=== PATIENT | male | born 1960 | race Two or more races ===

== ENCOUNTER 2018-03-28 00:38 | Inpatient (IN) | payer OTHER ==
[2018-03-28] MEDS ORDERED: NS 1,000 ML IV ONE ×3 (00:41→03:17)
--- NOTE | 2018-03-28 00:44 | EDPHY ---
H & P Time Seen by Provider: 03/28/18 00:42 HPI/ROS: HPI CHIEF COMPLAINT: Unresponsiveness alcohol intoxication possible Tylenol overdose HISTORY OF PRESENT ILLNESS: 49-year-old male Lukas Duran, presents emergency room unresponsive, does not respond anything verbal or painful stimuli. Blood sugar reported normal by EMS. They were called to his private residence after he at some point called his neighbor for help that he was too intoxicated with alcohol. Also they were concerned that he may have taken a large amount of Tylenol. He presents emergency room GCS of 3. Agonal respirations unresponsive. Past Medical History: Unknown medical history Past Surgical History: Unknown surgical history Social History: Unknown Family History: Unknown ROS REVIEW OF SYSTEMS: Limited due to mental state and history from EMS. Unresponsive. Exam Constitutional unresponsive triage nursing summary reviewed, vital signs reviewed, Eyes normal conjunctivae and sclera, EOMI, PERRLA. HENT normal inspection, atraumatic, moist mucus membranes, no epistaxis, neck supple/ no meningismus, no raccoon eyes. Respiratory clear to auscultation bilaterally, normal breath sounds, no respiratory distress, no wheezing. Cardiovascular rate normal, regular rhythm, no murmur, no edema, distal pulses normal. Gastrointestinal soft, non-tender, no rebound, no guarding, normal bowel sounds, no distension, no pulsatile mass. Genitourinary no CVA tenderness. Musculoskeletal no midline vertebral tenderness, full range of motion, no calf swelling, no tenderness of extremities, no meningismus, good pulses, neurovascularly intact. Skin pink, warm, & dry, no rash, skin atraumatic. Neurologic unresponsive does not move anything. Heme/Lymph/Immune no lymphadenopathy. Differential Diagnosis: Includes but is not limited to in a particular order polysubstance overdose, alcohol intoxication, narcotic overdose, Tylenol overdose, salicylate overdose, intracranial bleed, mi Medical Decision Making: Plan for this patient upon arrival I did Greet the patient has been moved to ER room 1 for intubation given he is unresponsive. Patient's unresponsive requiring emergent intubation. Patient will have large amount of blood work sent CBC, chemistry, LFTs, seated medicine level salicylate level alcohol level drug screen, CT scan head without contrast, chest x-ray for intubation, ABG Re-evaluation: Serum alcohol level 495. See medicine level elevated 31. CT scan head without contrast negative for acute bleed. Called to me by EKG interpretation by me on record in [employer] system. Impression sinus rhythm rate of 78, time of EKG 1:43 a.m., this is an early Repol pattern. No acute ischemia appreciated. Acetaminophen count of the patient is Tylenol, there 72 missing, out of 250 pills. Given that there 725 mg Tylenol as missing I will contact poison Control. The time of ingestion is unknown. The patient's alcohol level is 495. He is currently intubated with hemodynamically stable vital signs. Critical Care: Total Critical Care Time Spent Managing this Patient: 85 Minutes. This time was spent Exclusively with this patient. This Care was exclusive of procedures. The Organ System/life at risk was resp failure, drug overdose, polysubstance od This Patient was in Critical Condition because resp. failure, drug overdose, tylenol od, polysubstance abuse 0227: Patient has received of the Tylenol bother that he bought [email or web address]. The Tylenol bottle was bought at 10:30 p.m.. This is possibly the time of ingestion. 75 pills 500 mg or missing out of the 250. Will plan for 4 hr level at 2:30 a.m. At recommendation of poison Control. If above 150 may need to start NAC protocol. Additionally spoke with the hospitalist service Dr. Khoury who agrees to admit to ICU. Final diagnosis respiratory failure. Acute alcohol intoxication, alcohol overdose, Tylenol ingestion, polysubstance overdose, possible suicide attempt. Patient has been placed on M1 hold by police. Spoke with poison Control 3:00 a.m.. Recommend NAC protocol. Time of ingestion is not exactly accurate. Due to the patient's elevated Tylenol level close to 115 elevated LFTs with unknown baseline plan will be to start on NAC protocol. Patient started on the NAC protocol. Intubation Procedure: Indication respiratory failure. Patient was placed on a non-rebreather with high-flow nasal cannula. The patient was preoxygenated. Patient placed on full quality assurance monitor body. Patient was emergently intubated with RSI medications. 20 mg IV etomidate were used. 120 mg IV succinylcholine. A mac 4 blade was used to visualize the cords. Direct visualization of the cords were obtain. A 7.5 endotracheal tube was passed directly through the cords. Endotracheal tube intubation was confirmed with chest x-ray, capnography for change, humidified air, and bilateral breath sounds. There were no complications during intubation. Patient tolerated this well. Total procedure time 20 min. Source: Patient, EMS Constitutional: Initial Vital Signs Temperature (C) 36.4 C 03/28/18 00:40 Heart Rate 92 03/28/18 00:40 Respiratory Rate 10 L 03/28/18 00:40 Blood Pressure 106/73 03/28/18 00:40 O2 Sat (%) 100 03/28/18 00:40 O2 Delivery Mode Ventilator O2 (L/minute) 15 Allergies/Adverse Reactions: No Known Allergies Allergy (Verified 03/28/18 17:17) Home Medications: Medication Instructions Recorded Cholecalciferol Vit D3 [Vitamin D3 2,000 units PO DAILY 03/28/18 (*)] Herbals/Supplements -Info Only 1 ea PO DAILY 03/28/18 Multivitamins [Multivitamin (*)] 1 each PO DAILY 03/28/18 Medical Decision Making - Data Points Laboratory Results: Laboratory Results 03/28/18 00:45 03/28/18 00:45 Medications Given: Enoxaparin Sodium (Lovenox) 40 mg SC DAILY CABRERA Stop: 09/24/18 08:59 Last Admin: 03/29/18 08:01 Dose: 40 mg Folic Acid (Folic Acid) 1 mg PO DAILY CABRERA Stop: 09/24/18 08:59 Last Admin: 03/29/18 08:00 Dose: 1 mg Acetylcysteine 8,600 mg/ (Dextrose) 1,043 mls @ 65.188 mls/hr IV CONT CABRERA Stop: 09/25/18 01:14 Last Admin: 03/29/18 01:20 Dose: 1,043 mls Magnesium Oxide (Magnesium Oxide) 400 mg PO BID CABRERA Stop: 09/25/18 20:59 Last Admin: 03/29/18 21:07 Dose: 400 mg Throat Lozenges (Cepacol Lozenge) 1 ea PO PRN PRN PRN Reason: Sore Throat Stop: 09/25/18 08:51 Last Admin: 03/29/18 10:30 Dose: 1 ea Discontinued Medications Chlordiazepoxide HCl (Librium) 50 mg PO ONCE ONE Stop: 03/29/18 10:24 Last Admin: 03/29/18 11:14 Dose: 50 mg Chlorhexidine Gluconate (Peridex) 15 ml PO Q12@08,20 CABRERA Stop: 09/24/18 07:59 Last Admin: 03/28/18 10:44 Dose: 15 ml Etomidate (Etomidate) 40 mg IVP EDNOW ONE Stop: 03/28/18 01:17 Last Admin: 03/28/18 00:49 Dose: 40 mg Sodium Chloride (Ns) 1,000 mls @ 0 mls/hr IV EDNOW ONE; Wide Open PRN Reason: Protocol Stop: 03/28/18 00:42 Last Admin: 03/28/18 01:12 Dose: 1,000 mls Sodium Chloride (Ns) 1,000 mls @ 0 mls/hr IV ONCE ONE PRN Reason: Wide Open Stop: 03/28/18 00:53 Last Admin: 03/28/18 02:07 Dose: 1,000 mls Propofol (Diprivan 10 Mg/Ml (Premix)) 50 mls @ 0 mls/hr IV EDNOW ONE; As Directed PRN Reason: Protocol Stop: 03/28/18 00:54 Last Admin: 03/28/18 01:04 Dose: 50 mls Famotidine/Sodium Chloride (Pepcid 20 Mg (Premix)) 50 mls @ 200 mls/hr IV Q12HRS CABRERA Stop: 09/24/18 08:59 Last Admin: 03/29/18 08:03 Dose: 50 mls Fentanyl/Sodium Chloride (Fentanyl 10 Mcg/Ml (Premix)) 100 mls @ 0 mls/hr IV CONT CABRERA; Per Protocol PRN Reason: Protocol Stop: 04/07/18 02:29 Last Admin: 03/28/18 03:11 Dose: 100 mls Acetylcysteine 4,300 mg/ (Dextrose) 521.5 mls @ 130.375 mls/hr IV ONCE ONE Stop: 03/28/18 08:29 Last Admin: 03/28/18 04:55 Dose: 521.5 mls Acetylcysteine 8,600 mg/ (Dextrose) 1,043 mls @ 65.188 mls/hr IV ONCE ONE Stop: 03/29/18 00:29 Last Admin: 03/28/18 09:10 Dose: 1,043 mls Acetylcysteine 12,900 mg/ (Dextrose) 264.5 mls @ 264.5 mls/hr IV ONCE ONE Stop: 03/28/18 04:29 Last Admin: 03/28/18 03:30 Dose: 264.5 mls Sodium Chloride (Ns) 1,000 mls @ 0 mls/hr IV ONCE ONE PRN Reason: Wide Open Stop: 03/28/18 03:18 Last Admin: 03/28/18 03:19 Dose: 1,000 mls Thiamine HCl 500 mg/ Sodium (Chloride) 105 mls @ 210 mls/hr IV DAILY CABRERA Stop: 04/01/18 08:59 Last Admin: 03/29/18 08:03 Dose: 105 mls Magnesium Sulfate (Magnesium Sulf 2 Gm (Premix)) 50 mls @ 50 mls/hr IV ONCE ONE Stop: 03/29/18 17:43 Last Admin: 03/29/18 16:59 Dose: 50 mls Potassium Chloride (Potassium Cl 10 Meq (Premix)) 100 mls @ 100 mls/hr IV Q1H CABRERA Stop: 03/29/18 20:59 Last Admin: 03/29/18 20:15 Dose: 100 mls Lorazepam (Ativan Injection) 0 mg IVP Q1H PRN; Protocol PRN Reason: Alcohol Withdrawal w/IV access Stop: 09/25/18 06:31 Last Admin: 03/29/18 07:53 Dose: 2 mg Potassium Chloride (Klor-Con) 40 meq PO ONCE ONE Stop: 03/29/18 16:44 Last Admin: 03/29/18 16:59 Dose: 40 meq Propofol (Diprivan) 40 mg IVP EDNOW ONE Stop: 03/28/18 01:17 Last Admin: 03/28/18 00:55 Dose: 40 mg Succinylcholine Chloride (Quelicin) 120 mg IVP EDNOW ONE Stop: 03/28/18 01:17 Last Admin: 03/28/18 00:50 Dose: 120 mg Point of Care Test Results: Chemistry 03/28/18 01:39 POC Troponin I 0.01 ng/mL ng/mL (0.00-0.08) Blood Gas/Lactic Acid-Arterial 03/28/18 01:15 Tidal Volume 550 Departure - [facility] Clinical Impression: Respiratory failure Qualifiers: Chronicity: acute Respiratory failure complication: hypoxia Qualified Code(s): J96.01 - Acute respiratory failure with hypoxia Alcohol overdose Qualifiers: Encounter type: initial encounter Injury intent: intentional self-harm Qualified Code(s): T51.92XA - Toxic effect of unspecified alcohol, intentional self-harm, initial encounter Acetaminophen overdose Qualifiers: Encounter type: initial encounter Injury intent: intentional self-harm Qualified Code(s): T39.1X2A - Poisoning by 4-Aminophenol derivatives, intentional self-harm, initial encounter Condition: Critical
[2018-03-28] MEDS ORDERED: PROPOFOL/EMULSION 50 ML IV ONE (00:53)
[2018-03-28 00:55] LABS: PLATELET COUNT 162 10^3/uL (150-400)
[2018-03-28] MEDS ORDERED: PROPOFOL 200 MG/20 ML VIAL ONE (00:58)
[2018-03-28 01:03] LABS: INR 0.97 (0.83-1.16); PROTIME(PATIENT) 13.1 SEC (12.0-15.0)
[2018-03-28] MEDS ORDERED: SUCCINYLCHOLINE CHLORIDE 200 MG/10 ML SYR IVP ONE (01:16)
[2018-03-28] MEDS ORDERED: PROPOFOL 200 MG/20 ML VIAL IVP ONE (01:16)
[2018-03-28] MEDS ORDERED: ETOMIDATE 40 MG/20 ML INJ IVP ONE (01:16)
[2018-03-28] MEDS ORDERED: fentaNYL/NACL 100 ML IV SCH (02:30)
[2018-03-28] MEDS ORDERED: PROPOFOL/EMULSION 100 ML IV SCH (02:30)
--- NOTE | 2018-03-28 03:03 | PDGENHP ---
History and Physical - Chief Complaint Ingestion - History of Present Illness 57 yo M w/ unknown PMHx brought to ED by EMS after reports of ingestion. The patient is intubated and sedated at the time of my evaluation so history has been gleaned from medical records and police notes. EMS was called to patient's house after the patient called his neighbor and told him he was too intoxicated. EMS arrived and found the patient somnolent with a bottle of Tylenol at his side. 72 pills are missing from the bottle, 500 mg dose per pill. Police was able to speak to his sister. She said the patient told her he drank a lot of alcohol and took 1/3 or a Tylenol bottle. She noted he sounded depressed. She told police she did not know of the patient having any prior suicide attempts. Case discussed with ED physician Dr. Chao; records reviewed in EMR and summarized above. History Information - Allergies/Home Medication List Allergies/Adverse Reactions: Unable to Assess Allergy (Unverified 03/28/18 02:22) I have personally reviewed and updated: family history, medical history - Past Medical History Additional medical history: Unable to obtain 2/2 AMS - Surgical History Additional surgical history: Unable to obtain 2/2 AMS - Family History Additional family history: Unable to obtain 2/2 AMS - Social History Smoking Status: Unknown if ever smoked Review of Systems Review of Systems: Unable to obtain 2/2 AMS Physical Exam Physical Exam: Temp Pulse Resp BP Pulse Ox 36.1 C 73 14 94/58 L 99 03/28/18 02:52 03/28/18 02:52 03/28/18 02:52 03/28/18 02:52 03/28/18 02:52 Constitutional: other (Intubated, sedated) Eyes: PERRL, anicteric sclera, other (Pinpoint pupils) Ears, Nose, Mouth, Throat: moist mucous membranes, no oral mucosal ulcers Cardiovascular: regular rate and rhythym, no murmur, rub, or gallop Respiratory: other (Mechanical breath sounds), No expiratory wheeze Gastrointestinal: normoactive bowel sounds, soft, non-tender abdomen Skin: warm, normal color Neurologic: other (Intubated, sedated) Lab Data & Imaging Review 03/28/18 00:45 03/28/18 00:45 WBC 5.15 10^3/uL (3.80-9.50) 03/28/18 00:45 RBC 4.73 10^6/uL (4.40-6.38) 03/28/18 00:45 Hgb 15.4 g/dL (13.7-17.5) 03/28/18 00:45 Hct 44.3 % (40.0-51.0) 03/28/18 00:45 MCV 93.7 fL (81.5-99.8) 03/28/18 00:45 MCH 32.6 pg (27.9-34.1) 03/28/18 00:45 MCHC 34.8 g/dL (32.4-36.7) 03/28/18 00:45 RDW 11.9 % (11.5-15.2) 03/28/18 00:45 Plt Count 162 10^3/uL (150-400) 03/28/18 00:45 MPV 10.6 fL (8.7-11.7) 03/28/18 00:45 Neut % (Auto) 44.9 % (39.3-74.2) 03/28/18 00:45 Lymph % (Auto) 32.4 % (15.0-45.0) 03/28/18 00:45 [place] % (Auto) 15.9 % (4.5-13.0) H 03/28/18 00:45 Eos % (Auto) 4.7 % (0.6-7.6) 03/28/18 00:45 Baso % (Auto) 1.9 % (0.3-1.7) H 03/28/18 00:45 Nucleat RBC Rel Count 0.0 % (0.0-0.2) 03/28/18 00:45 Absolute Neuts (auto) 2.31 10^3/uL (1.70-6.50) 03/28/18 00:45 Absolute Lymphs (auto) 1.67 10^3/uL (1.00-3.00) 03/28/18 00:45 Absolute Monos (auto) 0.82 10^3/uL (0.30-0.80) H 03/28/18 00:45 Absolute Eos (auto) 0.24 10^3/uL (0.03-0.40) 03/28/18 00:45 Absolute Basos (auto) 0.10 10^3/uL (0.02-0.10) 03/28/18 00:45 Absolute Nucleated RBC 0.00 10^3/uL (0-0.01) 03/28/18 00:45 Immature Gran % 0.2 % (0.0-1.1) 03/28/18 00:45 Immature Gran # 0.01 10^3/uL (0.00-0.10) 03/28/18 00:45 PT 13.1 SEC (12.0-15.0) 03/28/18 00:45 INR 0.97 (0.83-1.16) 03/28/18 00:45 APTT 26.2 SEC (23.0-38.0) 03/28/18 00:45 Puncture Site LEFT RADIAL 03/28/18 01:15 Patient Temperature 37.0 DEGREES 03/28/18 01:15 pCO2 36 mmHg (34-38) 03/28/18 01:15 pO2 152 mmHg (65-75) H 03/28/18 01:15 Total CO2 20 mEq/L (23-27) L 03/28/18 01:15 ABG pH 7.35 (7.35-7.45) 03/28/18 01:15 ABG PO2/FiO2 Ratio 380 RATIO 03/28/18 01:15 ABG HCO3 19 mEq/L (22-26) L 03/28/18 01:15 ABG O2 Saturation 99 % (92-95) H 03/28/18 01:15 ABG Base Excess -5.3 mEq/L (-2.5-2.5) L 03/28/18 01:15 O2 Concentration % 40 % (0-100) 03/28/18 01:15 Respiration Rate 16 03/28/18 01:15 Set Respiration Rate 16 03/28/18 01:15 Assist Control YES 03/28/18 01:15 Tidal Volume 550 03/28/18 01:15 PEEP 5 03/28/18 01:15 Sodium 143 mEq/L (135-145) 03/28/18 00:45 Potassium 4.4 mEq/L (3.3-5.0) 03/28/18 00:45 Chloride 107 mEq/L (97-110) 03/28/18 00:45 Carbon Dioxide 20 mEq/l (22-31) L 03/28/18 00:45 Anion Gap 16 mEq/L (6-14) H 03/28/18 00:45 BUN 18 mg/dL (7-23) 03/28/18 00:45 Creatinine 0.9 mg/dL (0.7-1.3) 11 00:45 Estimated GFR > 60 03/28/18 00:45 Glucose 100 mg/dL (70-100) 03/28/18 00:45 Calcium 9.6 mg/dL (8.5-10.4) 03/28/18 00:45 Magnesium 2.1 mg/dL (1.6-2.3) 03/28/18 00:45 Total Bilirubin 0.8 mg/dL (0.1-1.4) 03/28/18 00:45 Conjugated Bilirubin 0.2 mg/dL (0.0-0.5) 03/28/18 00:45 Unconjugated Bilirubin 0.6 mg/dL (0.0-1.1) 03/28/18 00:45 AST 93 IU/L (17-59) H 03/28/18 00:45 ALT 116 IU/L (21-72) H 03/28/18 00:45 Alkaline Phosphatase 70 IU/L (38-126) 03/28/18 00:45 POC Troponin I 0.01 ng/mL (0.00-0.08) 03/28/18 01:39 NT-Pro-B Natriuret Pep 35 pg/mL (0-125) 03/28/18 00:45 Total Protein 7.6 g/dL (6.3-8.2) 03/28/18 00:45 Albumin 4.5 g/dL (3.5-5.0) 03/28/18 00:45 Lipase 331 IU/L (23-300) H 03/28/18 00:45 Salicylates < 1.0 mg/dL (2.0-20.0) L 03/28/18 00:45 Urine Opiates Screen NEGATIVE (NEGATIVE) 03/28/18 01:45 Acetaminophen 111 mcg/mL (10-30) H* 03/28/18 02:25 Urine Barbiturates NEGATIVE (NEGATIVE) 03/28/18 01:45 Ur Phencyclidine Scrn NEGATIVE (NEGATIVE) 03/28/18 01:45 Ur Amphetamine Screen NEGATIVE (NEGATIVE) 03/28/18 01:45 U Benzodiazepines Scrn NEGATIVE (NEGATIVE) 03/28/18 01:45 Urine Cocaine Screen NEGATIVE (NEGATIVE) 03/28/18 01:45 U Marijuana (THC) Screen NEGATIVE (NEGATIVE) 03/28/18 01:45 Ethyl Alcohol 495 mg/dL (0-10) H* 03/28/18 00:45 Assessment & Plan Assessment: 57 yo M presents somnolent requiring intubation after ETOH and APAP overdose. Plan: 1. Toxic ingestion, APAP and ETOH - Suspected suicide attempt. Tylenol ingestion of >30 grams and BAL 495 on admission. Agonal respirations were noted on arrival to ED so patient was intubated for airway protection. AST/ALT 93/116 on admission. APAP level 31->111 over 2.5 hours without clear time of ingestion. - Admit to ICU on M1 hold - Poison control contacted - initiate NAC protocol - Monitor CMP, INR, APAP lvl q12h 2. AHRF - Intubated for airway protection noting above - ICU vent management orders placed - Sedation protocol initiated - Daily CXR, ABG PRN 3. AGMA - Likely multifactorial form acetaminophen, ETOH, and lactic acidosis. - Monitor CMP, ABG 4. Major depression with suicidality - Unclear history, will place on M1 hold and have Psychiatry evaluate after medical clearance. Diet - NPO Code - Full Ppx - LMWH, H2B IV Dispo - Admit under inpatient stats I personally spent 40 minutes of critical care time evaluation patient, interpreting data, and coordinating care.
[2018-03-28] MEDS ORDERED: ACETYLCYSTEINE IV PROTOCOL 1 EACH MISC SCH ×2 (03:15)
[2018-03-28] MEDS ORDERED: D5W IV ONE ×3 (03:30→08:30)
[2018-03-28] MEDS ORDERED: ACETYLCYSTEINE IV ONE ×3 (03:30→08:30)
[2018-03-28 06:00] LABS: INR 1.17 (0.83-1.16); PROTIME(PATIENT) 15.1 SEC (12.0-15.0)
--- NOTE | 2018-03-28 06:06 | CPEKG ---
Test Reason : OPEN Blood Pressure : / mmHG Vent. Rate : 078 BPM Atrial Rate : 079 BPM P-R Int : 167 ms QRS Dur : 095 ms QT Int : 389 ms P-R-T Axes : -40 088 055 degrees QTc Int : [address] elev, probable normal early repol pattern Confirmed by Miguel Angel Aguilar ([id number]) on 03/28/2018 6:05:33 AM Also confirmed by Miguel Angel Aguilar ([id number]) on 03/28/2018 6:06:00 AM Referred By: Confirmed By:Miguel Angel Aguilar
[2018-03-28] MEDS ORDERED: CHLORHEXIDINE GLUCONATE 15 ML UDL PO SCH (08:00)
--- NOTE | 2018-03-28 09:40 | PDMN ---
Medical Necessity Medical necessity: Pt meets inpt criteria per MD order and MCG M-153, Drug Ingestion or Overdose. 57 y/o admitted w/toxic ingestion and acute hypoxic resp failure/somnolent in setting of ETOH and APAP overdose requiring intubation, suspected suicide attempt, on M1 Hold. Acetominophen lv 111, ethyl alcohol lv 495, AST/ALT 93/116. ICU monitoring/treatment w/vent management, follow labs, psych consult pending. Est LOS>2MN for management of above.
--- NOTE | 2018-03-28 09:49 | HOSPPROG ---
Hospitalist Progress Note Assessment/Plan: 57 yo M presents somnolent requiring intubation after ETOH and APAP overdose. Plan: 1. Toxic ingestion, APAP and ETOH - Suspected suicide attempt. Tylenol ingestion of >30 grams and BAL 495 on admission. Agonal respirations were noted on arrival to ED so patient was intubated for airway protection. AST/ALT 93/116 on admission. APAP level 31->111 over 2.5 hours without clear time of ingestion. - Admitted to ICU on M1 hold - Poison control contacted - Continue NAC protocol - Monitor CMP, INR, APAP lvl q12h per protocol 2. AHRF - Intubated for airway protection noting above - ICU vent management orders placed - Sedation protocol initiated - Daily CXR, ABG PRN 3. AGMA - Likely multifactorial form acetaminophen, ETOH, and lactic acidosis. - Monitor CMP, ABG 4. Major depression with suicidality - Unclear history, will place on M1 hold and have Psychiatry evaluate after medical clearance. Diet - NPO Code - Full Ppx - LMWH, H2B IV Dispo - Admit under inpatient stats I personally spent 35 minutes of critical care time evaluation patient, interpreting data, and coordinating care. Subjective: Patient intubated Objective: Vital Signs Temp Pulse Resp BP Pulse Ox 36.8 C 71 21 H 103/51 L 98 03/28/18 09:00 03/28/18 09:00 03/28/18 09:00 03/28/18 09:00 03/28/18 09:00 Laboratory Results 03/28/18 05:35 03/27/18 03/28/18 03/29/18 05:59 05:59 05:59 Intake Total 2717.8 Output Total 1000 Balance 1717.8 PT 15.1 SEC (12.0-15.0) H 03/28/18 05:35 INR 1.17 (0.83-1.16) H 03/28/18 05:35 - Physical Exam Constitutional: no apparent distress, chronically ill appearing Eyes: anicteric sclera Ears, Nose, Mouth, Throat: other (intubated) Cardiovascular: regular rate and rhythym Respiratory: no respiratory distress Gastrointestinal: soft, non-tender abdomen Genitourinary: ornelas in urethra Skin: warm Neurologic: No AAOx3 Psychiatric: No interacting appropriately ICD10 Worksheet Patient Problems: Problems Problem Status Onset Acetaminophen overdose Acute Alcohol overdose Acute Respiratory failure Acute
--- NOTE | 2018-03-28 09:58 | PDGENHP ---
History and Physical - Chief Complaint Altered mental status - History of Present Illness 57-year-old male new to a [facility] brought in by ambulance after intentional acetaminophen ingestion acute alcohol intoxication concern for suicide attempt. Patient was intubated in the emergency department for airway protection. His neighbor/sister approximates he took 72 pills of 500 mg Tylenol. Per report he has had no prior suicide attempts. Patient was attended at time of history and physical is unable to provide any meaningful information. I looked through [email or web address] as well as [facility] and we have no significant prior records on file. Overnight patient remained intubated and minimally sedated. He has had adequate urine output. History Information - Allergies/Home Medication List Allergies/Adverse Reactions: Unable to Assess Allergy (Unverified 03/28/18 02:22) I have personally reviewed and updated: family history, medical history, social history, surgical history - Past Medical History Additional medical history: Unable to obtain 2/2 AMS - Surgical History Additional surgical history: Unable to obtain 2/2 AMS - Family History Additional family history: Unable to obtain 2/2 AMS - Social History Smoking Status: Unknown if ever smoked Additional social history: Unable to be obtained secondary to patient's mental status and critical illness Review of Systems Review of Systems: Unable to be obtained secondary to patient's mental status and critical illness Physical Exam Physical Exam: Temp Pulse Resp BP Pulse Ox 36.8 C 71 21 H 103/51 L 98 03/28/18 09:00 03/28/18 09:00 03/28/18 09:00 03/28/18 09:00 03/28/18 09:00 O2 (L/minute) 100 FIO2 (%) 30 Constitutional: no apparent distress Eyes: PERRL, No icteric sclera Ears, Nose, Mouth, Throat: moist mucous membranes, ears appear normal, other ( The T-tube in place), No oral thrush Cardiovascular: regular rate and rhythym, no murmur, rub, or gallop Respiratory: no respiratory distress, no rales or rhonchi, other (Mechanical breath sounds) Gastrointestinal: normoactive bowel sounds, soft, non-tender abdomen Genitourinary: other ([place] in place) Skin: warm, normal color, no rashes or abrasions Neurologic: other (Attendant, minimally withdraws to pain. No obvious focal deficits normal tone) Psychiatric: other (Obtunded) Lab Data & Imaging Review 03/28/18 00:45 03/28/18 05:35 WBC 5.15 10^3/uL (3.80-9.50) 03/28/18 00:45 RBC 4.73 10^6/uL (4.40-6.38) 03/28/18 00:45 Hgb 15.4 g/dL (13.7-17.5) 03/28/18 00:45 Hct 44.3 % (40.0-51.0) 03/28/18 00:45 MCV 93.7 fL (81.5-99.8) 03/28/18 00:45 MCH 32.6 pg (27.9-34.1) 03/28/18 00:45 MCHC 34.8 g/dL (32.4-36.7) 03/28/18 00:45 RDW 11.9 % (11.5-15.2) 03/28/18 00:45 Plt Count 162 10^3/uL (150-400) 03/28/18 00:45 MPV 10.6 fL (8.7-11.7) 03/28/18 00:45 Neut % (Auto) 44.9 % (39.3-74.2) 03/28/18 00:45 Lymph % (Auto) 32.4 % (15.0-45.0) 03/28/18 00:45 Humphreys % (Auto) 15.9 % (4.5-13.0) H 03/28/18 00:45 Eos % (Auto) 4.7 % (0.6-7.6) 03/28/18 00:45 Baso % (Auto) 1.9 % (0.3-1.7) H 03/28/18 00:45 Nucleat RBC Rel Count 0.0 % (0.0-0.2) 03/28/18 00:45 Absolute Neuts (auto) 2.31 10^3/uL (1.70-6.50) 03/28/18 00:45 Absolute Lymphs (auto) 1.67 10^3/uL (1.00-3.00) 03/28/18 00:45 Absolute Monos (auto) 0.82 10^3/uL (0.30-0.80) H 03/28/18 00:45 Absolute Eos (auto) 0.24 10^3/uL (0.03-0.40) 03/28/18 00:45 Absolute Basos (auto) 0.10 10^3/uL (0.02-0.10) 03/28/18 00:45 Absolute Nucleated RBC 0.00 10^3/uL (0-0.01) 03/28/18 00:45 Immature Gran % 0.2 % (0.0-1.1) 03/28/18 00:45 Immature Gran # 0.01 10^3/uL (0.00-0.10) 03/28/18 00:45 PT 15.1 SEC (12.0-15.0) H 03/28/18 05:35 INR 1.17 (0.83-1.16) H 03/28/18 05:35 APTT 26.2 SEC (23.0-38.0) 03/28/18 00:45 Puncture Site RIGHT RADIAL 03/28/18 02:55 Patient Temperature 37.0 DEGREES 03/28/18 02:55 pCO2 35 mmHg (34-38) 03/28/18 02:55 pO2 275 mmHg (65-75) H 03/28/18 02:55 Total CO2 18 mEq/L (23-27) L 03/28/18 02:55 ABG pH 7.29 (7.35-7.45) L 03/28/18 02:55 ABG PO2/FiO2 Ratio 688 RATIO 03/28/18 02:55 ABG HCO3 16 mEq/L (22-26) L 03/28/18 02:55 ABG O2 Saturation 99 % (92-95) H 03/28/18 02:55 ABG Base Excess -9.0 mEq/L (-2.5-2.5) L 03/28/18 02:55 O2 Concentration % 40 % (0-100) 03/28/18 02:55 Respiration Rate 20 03/28/18 02:55 Set Respiration Rate 16 03/28/18 02:55 Assist Control YES 03/28/18 02:55 Tidal Volume 550 03/28/18 02:55 PEEP 5 03/28/18 02:55 Sodium 142 mEq/L (135-145) 03/28/18 05:35 Potassium 4.2 mEq/L (3.3-5.0) 03/28/18 05:35 Chloride 108 mEq/L (97-110) 03/28/18 05:35 Carbon Dioxide 17 mEq/l (22-31) L 03/28/18 05:35 Anion Gap 17 mEq/L (6-14) H 03/28/18 05:35 BUN 16 mg/dL (7-23) 03/28/18 05:35 Creatinine 0.7 mg/dL (0.7-1.3) 03/28/18 05:35 Estimated GFR > 60 03/28/18 05:35 Glucose 106 mg/dL (70-100) H 03/28/18 05:35 Calcium 7.8 mg/dL (8.5-10.4) L 03/28/18 05:35 Magnesium 2.1 mg/dL (1.6-2.3) 03/28/18 00:45 Total Bilirubin 0.6 mg/dL (0.1-1.4) 03/28/18 05:35 Conjugated Bilirubin 0.2 mg/dL (0.0-0.5) 03/28/18 00:45 Unconjugated Bilirubin 0.6 mg/dL (0.0-1.1) 03/28/18 00:45 AST 79 IU/L (17-59) H 03/28/18 05:35 ALT 97 IU/L (21-72) H 03/28/18 05:35 Alkaline Phosphatase < 20 IU/L (38-126) L 03/28/18 05:35 POC Troponin I 0.01 ng/mL (0.00-0.08) 03/28/18 01:39 NT-Pro-B Natriuret Pep 35 pg/mL (0-125) 03/28/18 00:45 Total Protein 6.0 g/dL (6.3-8.2) L 03/28/18 05:35 Albumin 3.4 g/dL (3.5-5.0) L 03/28/18 05:35 Lipase 331 IU/L (23-300) H 03/28/18 00:45 Salicylates < 1.0 mg/dL (2.0-20.0) L 03/28/18 00:45 Urine Opiates Screen NEGATIVE (NEGATIVE) 03/28/18 01:45 Acetaminophen 104 mcg/mL (10-30) H* 03/28/18 05:35 Urine Barbiturates NEGATIVE (NEGATIVE) 03/28/18 01:45 Ur Phencyclidine Scrn NEGATIVE (NEGATIVE) 03/28/18 01:45 Ur Amphetamine Screen NEGATIVE (NEGATIVE) 03/28/18 01:45 U Benzodiazepines Scrn NEGATIVE (NEGATIVE) 03/28/18 01:45 Urine Cocaine Screen NEGATIVE (NEGATIVE) 03/28/18 01:45 U Marijuana (THC) Screen NEGATIVE (NEGATIVE) 03/28/18 01:45 Ethyl Alcohol 495 mg/dL (0-10) H* 03/28/18 00:45 Visualized and Interpreted imaging results: Yes Interpretation: Chest x-ray with ET tube in appropriate position, no focal infiltrate Assessment & Plan Assessment: ASSESSMENT # acute respiratory failure requiring intubation # toxic metabolic encephalopathy # acetaminophen overdose # Etoh intoxication # suidice attempt # Acute liver injury # AGMA PLAN # lung protective ventilation # minimize sedation assess for extubation daily # NAC protocol, bid apap and CMP # IVF, trend BMP # M1 hold for suidicide attempt # Will consult psych when medically cleared # Analgesia none # Sedation propofol # Thromboprophylaxis - SQ hep # Head of bed elevated # Ulcer prophylaxis - H2 sloan # Glucose SSI # Skin no skin breakdown # Delirium - delirium precautions Patient is critical ill due to life threatening organ dysfunction and is at high risk for decompensation and . Total critical care time, excluding procedures: 95 min ABX none EVENTS admission, intubation
--- NOTE | 2018-03-28 09:59 | ASMTCASEMG ---
Living Arrangements What is your living Answers: Alone arrangement? Who do you live with? Type Of Residence What kind of residence do Answers: House you live in? Discharge Plan Comments Coordination Status Comments Notes: Patient is a 57yo single male who arrived EMS after he called the neighbor's to say he had drank too much ETOH. Patient was intubated and sedated due to respiratory failure on admit. Patient's sister states she thinks he ingested 1/3 of a bottle of Tylenol, approximately 72 pills, 500 mg dose per pill in addition to the ETOH. Patient's sister states patient sounded depressed when he called her. Patient has been placed on an M1 hold and will need a psych eval when he medically clears. CM will follow. Date Signed: 03/28/2018 09:58 AM Electronically Signed By:Evelyn Cochran LCSW
[2018-03-28] MEDS: FAMOTIDINE 20 MG/NACL 50 ML IV SCH ×2 (10:42→20:55)
[2018-03-28] MEDS: ENOXAPARIN 40 MG/0.4 ML SYR SC SCH (10:42)
[2018-03-28] MEDS ORDERED: HALOPERIDOL LACT 5 MG/ML INJ IVP PRN (11:05)
[2018-03-28] MEDS: FOLIC ACID 1 MG TAB PO SCH (11:55)
[2018-03-28 18:10] LABS: INR 1.17 (0.83-1.16); PROTIME(PATIENT) 15.1 SEC (12.0-15.0)
[2018-03-28] MEDS ORDERED: ONDANSETRON 4 MG/2 ML VIAL IVP PRN (19:59)
[2018-03-29] MEDS: D5W IV SCH ×2 (01:20→23:45)
[2018-03-29] MEDS: ACETYLCYSTEINE IV SCH ×2 (01:20→23:45)
[2018-03-29 06:23] LABS: INR 1.09 (0.83-1.16); PROTIME(PATIENT) 14.3 SEC (12.0-15.0)
[2018-03-29] MEDS ORDERED: FLUMAZENIL 0.5 MG/5 ML MDV IVP PRN (06:32)
[2018-03-29] MEDS: LORazepam 2 MG/ML INJ IVP PRN ×2 (06:43→07:53)
[2018-03-29] MEDS: FOLIC ACID 1 MG TAB PO SCH (08:00)
[2018-03-29] MEDS: ENOXAPARIN 40 MG/0.4 ML SYR SC SCH (08:01)
[2018-03-29] MEDS: FAMOTIDINE 20 MG/NACL 50 ML IV SCH (08:03)
[2018-03-29] MEDS ORDERED: THIAMINE HCL 500 MG in NS 100 ML IV SCH (09:00)
[2018-03-29] MEDS: CEPACOL LOZENGE PO PRN ×2 (09:10→10:30)
[2018-03-29] MEDS ORDERED: chlordiazePOXIDE 25 MG CAP PO ONE (10:23)
--- NOTE | 2018-03-29 12:13 | PDINTPN ---
Research Professional Progress Note Assessment/Plan: ASSESSMENT 49-year-old male with acute alcohol intoxication and intentional acetaminophen overdose as part of a suicide attempt. # acute respiratory failure requiring intubation, resolved extubated 03/28/18. # toxic metabolic encephalopathy, resolved # acetaminophen overdose # Etoh intoxication # Etoh w/d # suidice attempt # Acute liver injury # AGMA resolved PLAN # APAP level now undetectable but TBili rising. Will continue NAC until LFTs have interval improvement. # early for etoh w/d but pt has significant drinking history. Librium x 1 now, follow for s/sx of w/d # M1 hold for suicide attempt # Will consult psych when medically cleared # Analgesia none # Sedation none # Thromboprophylaxis - SQ hep # Head of bed elevated # Ulcer prophylaxis - NA # Glucose SSI # Skin no skin breakdown # Delirium - delirium precautions Subjective: Extubated today, initially admitted to suicide attempt, now denies. Denies headachess, chest pain, nausea vomiting, diarrhea, fevers or chills. Better affect today. Tylenol level now undetectable, LFTs trending number T bili is rising. Objective: Vital Signs Temp Pulse Resp BP Pulse Ox 37.5 C 96 20 149/89 H 93 03/29/18 08:00 03/29/18 10:00 03/29/18 10:00 03/29/18 10:00 03/29/18 10:00 Laboratory Results 03/29/18 06:00 03/28/18 03/29/18 03/30/18 05:59 05:59 05:59 Intake Total 2717.8 2382 Output Total 1000 3850 Balance 1717.8 -1468 PT 14.3 SEC (12.0-15.0) 03/29/18 06:00 INR 1.09 (0.83-1.16) 03/29/18 06:00 Physical Exam - Physical Exam General Appearance: alert, no apparent distress EENT: PERRL/EOMI, normal ENT inspection Neck: full range of motion Respiratory: chest non-tender, lungs clear, normal breath sounds Cardiac/Chest: normal peripheral pulses, regular rate, rhythm, No gallop, No JVD Abdomen: normal bowel sounds, non-tender Male Genitalia: deferred Skin: normal color, warm/dry Extremities: normal range of motion, non-tender, No pedal edema Neuro/Psych: no motor/sensory deficits, alert, oriented x 3 ICD10 Worksheet Patient Problems: Problems Problem Status Onset Acetaminophen overdose Acute Alcohol overdose Acute Respiratory failure Acute
--- NOTE | 2018-03-29 12:18 | HOSPPROG ---
Hospitalist Progress Note Assessment/Plan: 57 yo M presents somnolent requiring intubation after ETOH and APAP overdose. Plan: 1. Toxic ingestion, APAP and ETOH - Suspected suicide attempt. Tylenol ingestion of >30 grams and BAL 495 on admission. Agonal respirations were noted on arrival to ED so patient was intubated for airway protection. AST/ALT 93/116 on admission. APAP level 31->111 over 2.5 hours without clear time of ingestion. - Admitted to ICU on M1 hold - Poison control contacted, recommend continuing NAC until LFTS and Acetaminophen level normalize - Continue NAC protocol, T bili elevated to 2.0 this AM - Monitor CMP, INR, APAP lvl q12h per protocol 2. AHRF - Intubated for airway protection noting above - Extubated and saturating well on RA 3. AGMA - Likely multifactorial form acetaminophen, ETOH, and lactic acidosis. - Monitor CMP, ABG 4. Major depression with suicidality - Unclear history, will place on M1 hold and have Psychiatry evaluate after medical clearance. Diet - NPO Code - Full Ppx - LMWH, H2B IV Dispo - Pending clinical course, possible d/c to IP Psych after evaluation Subjective: Patient reports no complaints this AM Objective: Vital Signs Temp Pulse Resp BP Pulse Ox 37.5 C 96 20 149/89 H 93 03/29/18 08:00 03/29/18 10:00 03/29/18 10:00 03/29/18 10:00 03/29/18 10:00 Laboratory Results 03/29/18 06:00 03/28/18 03/29/18 03/30/18 05:59 05:59 05:59 Intake Total 2717.8 2382 Output Total 1000 3850 Balance 1717.8 -1468 PT 14.3 SEC (12.0-15.0) 03/29/18 06:00 INR 1.09 (0.83-1.16) 03/29/18 06:00 - Physical Exam Constitutional: chronically ill appearing Eyes: PERRL Ears, Nose, Mouth, Throat: dry mucous membranes Cardiovascular: regular rate and rhythym Respiratory: no respiratory distress Genitourinary: No ornelas in urethra Skin: normal color Neurologic: AAOx3 Psychiatric: depressed, poor insight ICD10 Worksheet Patient Problems: Problems Problem Status Onset Acetaminophen overdose Acute Alcohol overdose Acute Respiratory failure Acute
[2018-03-29] MEDS ORDERED: OLANZapine 10 MG/2 ML VIAL IM PRN (15:34)
[2018-03-29] MEDS ORDERED: chlordiazePOXIDE 25 MG CAP PO PRN (15:47)
[2018-03-29] MEDS ORDERED: POTASSIUM CL 20 MEQ TAB PO ONE (16:43)
[2018-03-29] MEDS ORDERED: MAGNESIUM SULF 2 GM/WATER 50 ML IV ONE (16:44)
[2018-03-29] MEDS: POTASSIUM Cl (KCl) 100 ML IV SCH ×4 (16:59→20:15)
[2018-03-29] MEDS: MAGNESIUM OXIDE 400 MG TAB PO SCH (21:07)
[2018-03-29 21:53] LABS: INR 1.03 (0.83-1.16); PROTIME(PATIENT) 13.7 SEC (12.0-15.0)
[2018-03-29] MEDS ORDERED: PNEUMOCOCCAL 0.5ML VACCINE VIAL IM ONE (23:05)
[2018-03-30] MEDS ORDERED: POTASSIUM CL 20 MEQ TAB PO ONE (08:48)
[2018-03-30] MEDS ORDERED: THIAMINE HCL 100 MG TAB PO SCH (09:00)
[2018-03-30] MEDS: FOLIC ACID 1 MG TAB PO SCH (09:03)
[2018-03-30] MEDS: ENOXAPARIN 40 MG/0.4 ML SYR SC SCH (09:03)
[2018-03-30] MEDS: MAGNESIUM OXIDE 400 MG TAB PO SCH (09:03)
--- NOTE | 2018-03-30 11:53 | HOSPPROG ---
Hospitalist Progress Note Assessment/Plan: 57 yo M presents somnolent requiring intubation after ETOH and APAP overdose. Plan: 1. Toxic ingestion, APAP and ETOH - Suspected suicide attempt. Tylenol ingestion of >30 grams and BAL 495 on admission. Agonal respirations were noted on arrival to ED so patient was intubated for airway protection. AST/ALT 93/116 on admission. APAP level 31->111 over 2.5 hours without clear time of ingestion. - Admitted to ICU on M1 hold - Poison control contacted, recommend continuing NAC until LFTS and Acetaminophen level normalize - Discontinue NAC protocol this morning 2. AHRF - Intubated for airway protection noting above - Extubated and saturating well on RA 3. AGMA - Likely multifactorial form acetaminophen, ETOH, and lactic acidosis. - Monitor CMP, ABG 4. Major depression with suicidality - Unclear history, placed on M1 hold and have Psychiatry evaluate today Diet - NPO Code - Full Ppx - LMWH, H2B IV Dispo - Patient medically cleared, psych to evaluate patient today for d/c to IP Psychiatric Subjective: Patient with no complaints this AM Objective: Vital Signs Temp Pulse Resp BP Pulse Ox 36.7 C 93 16 137/90 H 100 03/30/18 08:00 03/30/18 08:00 03/30/18 08:00 03/30/18 08:00 03/30/18 08:00 Laboratory Results 03/30/18 05:05 03/29/18 03/30/18 03/31/18 05:59 05:59 04:59 Intake Total 2382 3176 Output Total 3850 1300 Balance -1468 1876 PT 13.7 SEC (12.0-15.0) 03/29/18 21:35 INR 1.03 (0.83-1.16) 03/29/18 21:35 - Physical Exam Constitutional: no apparent distress, unkempt Eyes: PERRL Ears, Nose, Mouth, Throat: moist mucous membranes Cardiovascular: regular rate and rhythym Respiratory: no respiratory distress Gastrointestinal: No distension Genitourinary: No ornelas in urethra Skin: normal color Neurologic: AAOx3 Psychiatric: depressed ICD10 Worksheet Patient Problems: Problems Problem Status Onset Acetaminophen overdose Acute Alcohol overdose Acute Respiratory failure Acute
--- NOTE | 2018-03-30 11:55 | PDINTPN ---
Web Development Manager Progress Note Assessment/Plan: ASSESSMENT 49-year-old male with acute alcohol intoxication and intentional acetaminophen overdose as part of a suicide attempt. Patient is medically cleared and is suitable to be evaluated by Psychiatry. # acute respiratory failure requiring intubation, resolved extubated 03/28/18. # toxic metabolic encephalopathy, resolved # acetaminophen overdose, status post N-acetylcysteine treatment # Etoh intoxication, resolved # Etoh w/d, resolved # suidice attempt # Acute liver injury, resolved # AGMA resolved # depression/anxiety PLAN # APAP level now undetectable and LFTs have normalized. Stop N-acetylcysteine # consult Psychiatry for possible inpatient treatment # M1 hold for suicide attempt # Analgesia none # Sedation trazodone qhs prn # Thromboprophylaxis - SQ hep # Head of bed elevated # Ulcer prophylaxis - NA # Glucose SSI # Skin no skin breakdown # Delirium - delirium precautions I spent 45 min on patient's care, greater than 50% of this was discussing with patient his mental health, counseling him and coordinating care. 03/30/18 12:00 Subjective: SUBJ and ROS Patient improve affect today, LFTs have improved this morning, good urine output , tolerating p. O. Patient denies headaches fevers chills nausea vomiting chest pains or shortness of breath. Endorses significant depression denies any active suicidal ideations. States he is interested in behavior health counseling and possible pharmacotherapy. He took Zoloft in the past. He states he will not try to kill himself again but does endorse concerns over his mental health Objective: Vital Signs Temp Pulse Resp BP Pulse Ox 36.7 C 93 16 137/90 H 100 03/30/18 08:00 03/30/18 08:00 03/30/18 08:00 03/30/18 08:00 03/30/18 08:00 Laboratory Results 03/30/18 05:05 03/29/18 03/30/18 03/31/18 05:59 05:59 04:59 Intake Total 2382 3176 Output Total 3850 1300 Balance -1468 1876 PT 13.7 SEC (12.0-15.0) 03/29/18 21:35 INR 1.03 (0.83-1.16) 03/29/18 21:35 Physical Exam - Physical Exam EENT: PERRL/EOMI, normal ENT inspection Neck: non-tender, full range of motion Respiratory: chest non-tender, lungs clear, normal breath sounds Cardiac/Chest: normal peripheral pulses, regular rate, rhythm Abdomen: non-tender, soft Male Genitalia: deferred Rectal: deferred Skin: normal color, warm/dry, No cyanosis Extremities: normal range of motion, non-tender Neuro/Psych: no motor/sensory deficits, alert, normal mood/affect, oriented x 3 , abnormal special education administrator II-XII ICD10 Worksheet Patient Problems: Problems Problem Status Onset Acetaminophen overdose Acute Alcohol overdose Acute Respiratory failure Acute
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
--- NOTE | 2018-03-30 16:39 | ASMTLCPROG ---
Notes Note: Notes: Faxed Packet to inpt unit looking for placement to a wide list, waiting to hear back Date Signed: 03/30/2018 04:38 PM Electronically Signed By:Casey Giles
--- NOTE | 2018-03-30 20:02 | ASMTTCLDSP ---
TLC Discharge Disposition Disposition: Answers: Admit Disposition Notes: Notes: In consultation with [facility] ICU physician, Alonso Gan MD and on-call psychiatrist, Dejon Whitlock MD, both concurred that pt appears to meet 27-65 criteria requiring psychiatric hospitalization as pt appears to be at risk of harm to self/others/gravely disabled due to a mental illness condition. For inpatient Dejon Whitlock MD admission, the following psychiatrist agreed to accept patient for admission to [facility] ([facility]): Type of Hold: Answers: M1/72-hour Hold Hold initiated by: Answers: Police Date Signed: 03/30/2018 08:01 PM Electronically Signed By:Casey Giles
[2018-03-30 21:26] VITALS: BP 140/70
[2018-03-31] MEDS ORDERED: CHOLECALCIFEROL VIT D3 1,000 UNITS TAB PO SCH (09:00)
[2018-03-31] MEDS ORDERED: Herbals/Supplements -Info Only PO SCH (09:00)
[2018-03-31] MEDS ORDERED: MULTIVITAMINS 1 EACH TAB PO SCH (09:00)
[2018-04-01] MEDS ORDERED: THIAMINE HCL 100 MG TAB PO SCH (09:00)
--- NOTE | 2018-04-02 13:58 | PDDCSUM ---
Discharge Summary Discharge Summary: Date of Admission: 03/28/2018 Date of Discharge: 03/30/2018 Consults: Critical Care, Psychiatry Followup: Psychiatry Hospital Course Problem List: 57 yo M presented with AHRF requiring intubation after ETOH and APAP overdose. 1. Toxic ingestion, APAP and ETOH - Suspected suicide attempt. Tylenol ingestion of >30 grams and BAL 495 on admission. Agonal respirations were noted on arrival to ED so patient was intubated for airway protection. AST/ALT 93/116 on admission. APAP level 31->111 over 2.5 hours without clear time of ingestion. - Admitted to ICU on M1 hold, discharged to IP Pysch - Poison control contacted, was placed on NAC protocol with improvement in Acetaminophen levels (negative) and LFTs 2. AHRF - Intubated for airway protection noting above - Extubated and saturating well on RA 3. AGMA - Likely multifactorial form acetaminophen, ETOH, and lactic acidosis. 4. Major depression with suicidality - Unclear history, placed on M1 hold, evaluated by Psych, d/c to IP Psych
== END 2018-03-30 20:55 | DRG 208 ==
LOC: OBSVTOIN 02:23 → EEVIPCON 02:23 → F2N 02:38
PROVIDERS: ADMIT Student in an Organized Health Care Education/Training Program; ATTEND Student in an Organized Health Care Education/Training Program
DX: J96.01 Acute respiratory failure with hypoxia (principal); E87.2 Acidosis; T39.1X2A Poisoning by 4-Aminophenol derivatives, intentional self-harm, initial encounter; T51.0X2A Toxic effect of ethanol, intentional self-harm, initial encounter; F32.9 Major depressive disorder, single episode, unspecified; R40.2432 Glasgow coma scale score 3-8, at arrival to emergency department; Y90.8 Blood alcohol level of 240 mg/100 ml or more; Z23 Encounter for immunization
CPT/HCPCS: 80305; 84484-PO; 92523-GN; 96374; 97161-GP; 97165-GO; G0008; G0009; G0480; J0132; J0330; J1650; J2060; J2704; J3010; J3411; J3475; J3480

== ENCOUNTER 2018-03-30 21:20 | Inpatient (IN) | payer OTHER ==
[2018-03-30] MEDS ORDERED: MAG HYDROX/AL HYDROX/SIMETH 30 ML UDCUP PO PRN (22:09)
[2018-03-30] MEDS ORDERED: NICOTINE POLACRILEX 2 MG GUM B PRN (22:09)
[2018-03-30] MEDS ORDERED: THIAMINE HCL 100 MG TAB PO ONE (22:09)
[2018-03-30] MEDS ORDERED: PROMETHAZINE HCL 25 MG TAB PO PRN (22:09)
[2018-03-30] MEDS ORDERED: IBUPROFEN 200 MG TAB PO PRN (22:09)
[2018-03-30] MEDS ORDERED: chlordiazePOXIDE 25 MG CAP PO PRN (22:09)
[2018-03-30] MEDS ORDERED: ACETAMINOPHEN 325 MG TAB PO PRN (22:09)
[2018-03-30] MEDS ORDERED: PROMETHAZINE HCL 25 MG SUPPR PR PRN (22:09)
[2018-03-30] MEDS ORDERED: MAGNESIUM HYDROXIDE 30 ML UDCUP PO PRN (22:09)
[2018-03-30] MEDS ORDERED: OLANZapine DISINTEGR 5 MG TAB PO PRN (22:09)
[2018-03-30] MEDS ORDERED: MELATONIN 3 MG TAB PO PRN (22:13)
[2018-03-31] MEDS: THIAMINE HCL 100 MG TAB PO SCH (15:03)
[2018-03-31] MEDS: MULTIVITAMINS 1 EACH TAB PO SCH (15:04)
[2018-03-31] MEDS: MAGNESIUM OXIDE 400 MG TAB PO SCH (15:04)
[2018-03-31] MEDS: CHOLECALCIFEROL VIT D3 2,000 UNITS TAB/CAP PO SCH (15:20)
[2018-03-31] MEDS: FOLIC ACID 1 MG TAB PO SCH (15:20)
--- NOTE | 2018-03-31 16:20 | BAPA ---
DATE OF SERVICE: 03/31/2018 CHIEF COMPLAINT: "I want to , I want to be finished, why didn't you just let me ." More recent statement from the patient says "I wasn't afraid when I did it, I knew exactly what I was doing. I'm not suicidal now on and know how bad it would hurt everyone around me." HISTORY OF PRESENT ILLNESS: The patient is a 57-year-old single, unemployed, man, admitted to the ED by EMS following an intentional overdose of approximately 70 tabs of Tylenol and acute alcohol intoxication. The M1 hold was placed by the police, who arrived after his sister called 911. The patient says he acted impulsively following a fight with his sister. His BAL in the ED was 0.495. The patient was stabilized in the ICU and treated for acetaminophen toxicity. When he was evaluated by the clinical assessment team foam caster, the patient was noted to be "highly organized, cheerful, rational, and engaging." After being in the ICU for several days, the patient said that he regretted his decision to try to kill himself. He said it was done impulsively. He said that he was upset and angry after an altercation with his sister. He said that he would not do that now. He told the clinical assessment team foam caster "I am not suicidal now and I know how bad it would hurt everyone around me." When this MD met with the patient on the inpatient Behavior[facility] Health Services Unit, he was slightly disheveled and unkempt. He had not showered. He was dressed in a hospital gown and scrub bottoms. He was pleasant, calm, cooperative. He made good eye contact. His demeanor was appropriate. He denied feeling sad, helpless, hopeless, worthless, or anxious. He denied having any thoughts of plans or intents to hurt himself or anyone else. He told MD that he regretted what he had done, especially since it upset his sister. He says that he felt "very fortunate" to be alive and was glad that his sister had called 911, he said "or else I would be ." He said that he feels "ally" and is glad he did not . The patient states that he would like to get help for depression. He said that it was "my pride" that prevented him from seeing more mental health providers and staying on medication. The patient has less insight about his alcohol use, even though he states adamantly that he plans not to drink, he also does not see it as a problem that requires intervention or treatment, it is not something that he wants services for or help to stop drinking alcohol. He feels that it is something that he can do on his own. He says that it is "not going to be a problem." The patient also seems to blame his relapse on alcohol on the fact that he was misdiagnosed. 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 The patient did not see the inconsistency in that or the fact that maybe the drinking was a problem for him and needed its own treatment in order to be effectively addressed. This MD attempted to elicit a better understanding of the nature and severity of the patient's symptoms and of the overall effect of the patient's alcohol use on both his physical, as well as his emotional and mental health, but patient only had limited insight. PAST PSYCHIATRIC HISTORY: The patient reports that he has had a history of depression since he was a teenager. He states that he has never been admitted to a psychiatric facility before and he has no prior suicide attempts. He says that in the past, his depression has kept him in bed for 2-3 months at a time, said that he would he would then be able to "rally and be functional for 2-3 weeks." He says that during those 2-3 weeks his family calls those his "manic phase" where he is euphoric and creative. He states that his primary care doctor has started him on Zoloft, which he has taken for 6-8 months, but says that he was drinking all during the time that he was taking the medication. His PCP noted that the patient was more erratic and impulsive during that time. The patient admits to this MD, however, that during the periods of time where his family thought he was "more manic" and when his PCP thought he was impulsive and erratic, he was actually drinking quite heavily and he admits to the fact that drinking alcohol causes him to have more disturbance in sleep, to have more mood swings, at times be more irritable, and to also act impulsively and to use poor judgment. All of those symptoms are consistent with the way the patient acknowledges that alcohol affects him. The patient states that he has 2 twin brothers, Lloyd and Nima. He states that his twin brother, Nima, killed himself when he was 25 years old by shooting himself. The patient states that he saw a counselor after Nima's but has not had therapy since then. The patient states that he has never been treated for his alcohol dependence. He has never done detox, never done rehab, and has never had any outpatient treatment for substance use disorder. ALLERGIES: The patient has no known drug allergies. CURRENT MEDICATIONS: The patient is currently prescribed vitamin D3 2000 units daily, folic acid 1 mg daily, magnesium oxide 400 mg p.o. twice daily, multivitamin 1 tab p.o. daily, and thiamine 200 mg p.o. daily, all by his PCP. PAST MEDICAL HISTORY: The patient states that he was misdiagnosed in July of 2017 when his medical team gave him "a health scare" by telling him they thought he might have ALS. 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 The patient does not have any other chronic health issues other than his alcohol use which has affected his liver, although he has not ever been diagnosed with hep B or C, does not seem like he has been tested for those. He has had elevated LFTs in the past including recently on this admission. ADMISSION LABS: The patient had labs done on 03/29/2018 in the ICU. His PT was 14.3. INR was 1.09. Sodium was 137, potassium 3.7, with chloride 107, BUN 8, creatinine 0.7, glucose 102, calcium 8.5, total bilirubin 1.1. AST was elevated at 61, ALT was elevated at 89, alkaline phosphatase was 50. His AST came down to 38 on 03/30 and his ALT came down to 62 on 03/30. His albumin 3.8. Total protein was 6.5. Toxicology screen for acetaminophen level was initially 111 on 03/28 and then started coming down and normalized on 03/29/18, and then it was undetected on 03/29. The patient was given Mucomyst in the ICU. His urine drug screen on 03/28/2018, when he was seen in the ED, was negative for all for all drugs of abuse, except for ethyl alcohol was 495. White cell count on 03/28 was 5.15, hemoglobin 15.4, hematocrit 44.3, platelet count was 162. SOCIAL HISTORY: According to the patient, his father was a marine, a heavy drinker, and of COPD when patient was 17. Patient moved out of the house due to he was having a difficult relationship with his father. He started dating and living with a 26-year-old woman. The patient did not graduate from high school but did get his GED. 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 The patient says that he currently lives off [address]. 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 He lives on 35,000 dollars a year. He has never been and has no children. His mother is 83 years old, is currently alive, and is dependent on Mr. Braswell to help her with errands. He has a sister, Negra with 2 children, and patient says that Negra is his "best friend in the world. The patient states that he has a very high IQ and feels like a failure for "not doing anything." The patient lives alone in [place]. His sister, Negra, is his primary support. FAMILY HISTORY: The patient states that his father was an alcoholic. No other mention of any mental illness or substance use in the family. SUBSTANCE USE HISTORY: Patient states he has never used cannabis, tobacco, or any illicit drugs. He began drinking when he was 38 years old and says that he stopped drinking for about 15 months in 2015, but then relapsed in July of 2017 and has been drinking heavily ever since. The patient currently denies any legal problems. MENTAL STATUS EXAMINATION: This is a tall, disheveled man, who looks older than his stated age. He is wearing a hospital gown and scrub bottoms, sitting in a chair. He is alert and oriented x4. His affect is euthymic. His demeanor is appropriate. He makes good eye contact. His speech rate and volume were both normal. His intellectual function appears to be average based upon on his vocabulary and fund of knowledge. He denies feeling sad, helpless, hopeless, worthless, or anxious. He denies any symptoms of psychosis including denying auditory and visual hallucinations, paranoid delusions, ideas of reference and any bizarre thoughts. There are no signs or symptoms of abbey. He does not have increase in goal-directed activity, decreased need for sleep, racing thoughts, pressured speech, or grandiose delusions. He does not endorse elated or elevated mood. He denies any thoughts, plans, or intents to hurt himself or anyone else. He says that he regrets making a suicide attempt and says that it was foolish and he would not do it again. He is also upset about hurting his sister's feelings and that he will "do whatever I need to" to reassure her that he is not a danger to himself when he leaves the hospital. His thought process is linear and goal directed. His insight and judgment are both poor as evidenced by his relapse on alcohol in July and his continued heavy use of alcohol despite significant negative consequences. IMPRESSION: 1. Substance-induced mood disorder. 2. Rule out major depressive disorder. 3. Alcohol use disorder, severe. 4. Unemployed, never had a full-time job. Lives alone, isolated, elderly parents, minimal social support, relies on his sister, Negra, for most of his social support needs, chronic alcohol dependence. PLAN: 1. Admit the patient to inpatient Behavioral Health Services Unit on [address] on an M1 hold. 2. Monitor closely for safety. The patient is currently not exhibiting any signs of psychosis or unsafe behavior. He is acting appropriately. He denies any thoughts, plans, or intent to hurt himself or anyone else. 3. Continue to monitor and observe the patient. Patient is currently on a [facility] protocol for alcohol withdrawal. He denies any symptoms of withdrawal. He denies a prior history of delirium tremens or withdrawal related seizures. 4. This MD spent a good deal of time talking about the potential psychotropic medications and explained the risks, benefits, and side effects of psychotropic medications, as well as the potential adverse affects of combining psychotropic medications with alcohol. The patient states that he is aware of this and states that he does not plan to be drinking. However, when MD raises the issue of what type of intervention the patient is planning on doing to help address his substance dependence, the patient demonstrates minimal insight into the nature and severity of his alcohol dependence. He understands that it has a direct effect upon his mood and a negative affect upon his ability to function in his daily life, including impairing his ability to hold a job, interfering with his cognition, decreasing his attention, focus, and concentration, making his mood more labile, ,and at times anxious, increasing the risk of him acting impulsively and demonstrating poor judgment. While the patient is able to agreed that all of these are negative affects on his life, he does not agree that his alcohol dependence requires a specific treatment. MD tried to educate the patient around options for treating chronic substance use disorder, including individual and group therapy, intensive outpatient programs, individual treatment with a certified addictions counselor and rehab, in addition to the possibility of medications that can help reduce cravings, and can help with his relapse prevention, including the Naloxone, acamprosate, and Antabuse. The patient states that he had not consider taking these medications before, but would think about them and MD encouraged to him to talk with his outpatient providers, including his PCP, and talking with the mental health providers, including an individual therapist and MD recommended that he see a certified addictions counselor. The patient states that he is interested in taking a medication for his mood and we talked about the risks, benefits, and side effects of antidepressant medications including Zoloft, which he has taken in the past. The patient does report periods of time where he appears to his family to be euphoric and excessively creative, but patient also admits that during those periods of time he is also continuing to drink heavily and acknowledges that his alcohol use has had impact upon his mood, as well as his sleep patterns. 5. Estimated length of stay is 2-3 days. The patient states that he wants to do "whatever it takes" to reassure his sister prior to him leaving the hospital that he will be safe. MD suggested the patient might want to have a family meeting prior to his discharge. He says that his sister would like him to stay with her for several days before going back to his place. The patient is agreeable to staying here on a voluntary basis while he gets stable. /[id number]/MODL MTDD
--- NOTE | 2018-03-31 16:36 | ASMTBHMTP ---
Master Treatment Plan Master Treatment Plan Answers: Depressed Mood with for: Suicidal Ideation Date: 03/31/2018 Diagnosis on Admission: Depression Expected length of stay: 3-5 Days Reason for admission: Notes: Per [facility] Evaluation - Pt. is a 57 year old sing, unemployed male admitted to eD by EMS following an intentional overdose of Tylenol (approximately 70 tabs) and [place], M1 hold placed by police. The patient reports acting impulsively folling a "fight" with his sister.He was admitted with a BAL of 495. His PCP is Symone Otoole at [facility]. Pt. was stabilized in the ICU and is now alert, clear, coherent oriented, and highly organized thinking, cheerful, rational and engaging with his family. The Clinical ASsessment Team (formally [facility]) distribution center supervisor also coached PT. around the process of healing and growth after an attempt and therapeutic options as well as build support in his life to prevent relapse or suicide attempts. Patient's stated presenting problems: Notes: Pt. shared about his medical history and the issues he has recently been dealing with. Pt. stated he got into a disagreement with his sister on and decided to buy a bottle of Tylenol. Pt. stated "soemthing snapped" and he took 77 pills and drank alcohol. Pt. stated he was found by his sister, who called 911. Patient's goals for treatment: Notes: Try any medication or combination of medication to help. "Don't ever want to repeat this" "There will be no drinking" Patient's strengths: Notes: Writes well, reasonably compassionate, reasonably good at projects, and supportive of family. Identify supports outside of hospital: Notes: Sister (best friend), mom and a few friends. Discharge criteria: Notes: Suicidal ideation will resolve and patient will have a plan to safely manage recurrent suicidal ideation. Initial disposition plan/considerations: Notes: Go to sisters for a few days, "get things squared away" at home and then return home. Master Treatment Plan Required Signatures Psychiatrist signature: Answers: Psychiatrist: RN on-shift signature: Answers: RN: Patient signature: Answers: Patient: Date Signed: 03/31/2018 04:35 PM Electronically Signed By:Elizabeth Watson
--- NOTE | 2018-04-01 08:38 | SOAPPROG ---
SOAP Progress Note Assessment/Plan: Assessment: Major Depressive Disorder, Severe. Alcohol Use Disorder, Severe. Slight improvement noted. (see subjective/objective note). Patient is not safe to discharge at this time as patient continues to exhibit signs of depression, and express depression symptoms with recent suicide attempt. Patient could benefit from continued inpatient hospitalization for crisis stabilization, safety, and medication evaluation. Patient likely discharge tomorrow if stable with safe discharge plan. Plan: (1) Psychotropic medications: After reviewing options, risks, and benefits patient agrees to trial of Zoloft 50 mg po QD. (2) Review with patient informed consent and recommendations for psychotropic medication treatment listed below. (3) Labs: no additional labs at this time (4) Therapy: continue milieu and group therapy (5) Further investigation including gathering information from patients relatives and review of past case records to inform treatment plan. (6) Safety/Wellness plan and follow-up outpatient appointments to be established prior to discharge. Next steps are for patient to meet with care advocate to plan a safe discharge plan and establish outpatient services for ongoing treatment. (7) Confer with inpatient treatment team regarding treatment plan. (8) Legal status: voluntary (9) Consider discharge on Sunday if patient is in stable condition, safe, and has a safe discharge plan. (10) Substance abuse interventions: alcohol PSYCHOTROPIC MEDICATION TREATMENT INFORMED CONSENT and RECOMMENDATIONS: Review nature of condition, diagnosis, and prognosis. Review nature and purpose of psychotropic medication treatment. Review type of psychotropic medications being ordered. Review risk and benefits of psychotropic medication treatment. Review probable length of time patient will need to take medications. Review risk and benefits of not undergoing psychotropic medication treatment. Review alternative treatments to psychotropic medications. Review psychotropic medications contraindications, drug-drug interactions, side effects, and importance of reporting any side effects to a psychiatric provider or nurse during inpatient hospitalization, and upon discharge to patients psychiatric outpatient provider, primary care provider, or other health urgent care. Review importance of asking a nurse, psychiatric provider, or primary care provider any questions or problems concerning the psychotropic medications. Verify patient understands the information that has been provided, and understands, accepts, and agrees to psychotropic medications. Review patients safety plan and importance of patient to report to staff while hospitalized if patient is ever a danger to self/others, or unable to care for self, and upon discharge, the importance for patient to contact [facility] or [facility], or go to the nearest emergency room, if patient is ever a danger to self/others, or unable to care for self. Recommend that upon discharge patient establish medication management treatment with a psychiatric provider, establishes routine therapy appointments, and follow-up with primary care provider. Verify patient understands and agrees to these recommendations. 04/01/18 08:40 Subjective: Following up with patient for evaluation of depression and safety. Patient reports, "Feeling fine, could use some more sleep, not sleeping well here." Patient expresses the following psychiatric symptoms moderate depression; denies SI. Patient reports appetite as good, and reports eating all meals. Patient describes getting 5-6 hours of sleep. Patient denies symptoms of ETOH withdrawal. Patient reports he has "let things go" around his house over the last 2 months, and his sister is going to assist him in cleaning it up after he discharges. Patient reports history of being on Zoloft in the past with some benefit. Discuss psychotropic medications options, risks, and benefits and patient agrees to trial of Zoloft 50 mg po first dose today. Patient agrees to stay voluntarily with plan to discharge tomorrow if stable with safe discharge plan. Objective: Vital Signs Temp Pulse Resp BP Pulse Ox 36.8 C 90 14 142/79 H 98 04/01/18 06:00 04/01/18 06:00 04/01/18 06:00 04/01/18 06:00 04/01/18 06:00 NURSING REPORT: Consulted with nursing for update on patients progress in treatment. Nurses report patient is engaged in treatment, is attending groups, slept 6 hours, expresses the following psychiatric symptoms: moderate depression , exhibits the following psychiatric symptoms: flat affect; is eating all meals , is agreeable to medications and taking as prescribed with no report of side effects, with no s/s of EPS/akathisia, denies SI, denies HI, denies A/V hallucinations, and denies delusions. MD REPORT FROM WEEKEND: admitted due to OD in [place]. Patient claims OD was impulsive after argument with sister while intoxicated. Denies SI/HI; requests medications. Hx Zoloft trial. Drinking regularly for 20+ years, never sought tx. Denies symptoms of ETOH withdrawal. SUBSTANCE ABUSE BRIEF INTERVENTION: Brief intervention regarding the risks of alcohol abuse is provided to patient with goal to reduce the risk of harm that could result from the continued use of alcohol, with the general aim to investigate the problem, raise awareness of problem, develop a solution with the patient, recommend a specific change or activity, and motivate the patient toward change. Assess substance abuse behavior and give supportive advice about harm reduction, recommend a reduction in hazardous/at-risk consumption patterns, and facilitate referrals for additional specialized treatment with careers counsellor. Intermediate goal is for the patient to quit and attend outpatient substance abuse treatment. Intervention focus on intermediate goals to allow for more immediate success in the treatment process to keep the patient motivated. Review following with patient: Alcohol/Binge Drinking risks : short-term: injuries, violence, alcohol poisoning, risky sexual behaviors. Long-term: high blood pressure, stroke, liver disease, digestive problems, cancer, learning and memory problems, depression and anxiety, social problems, and alcohol dependence. OUTPATIENT SUBSTANCE ABUSE TREATMENT: Patient referred to outpatient provider and treatment for continued treatment related to substance abuse. MSE: The patient presents dressed in hospital garb, with poor hygiene, unshaven , and looks stated age. Patient is sitting, posture is upright, and position is relaxed. Patient appears awake, alert, and responds appropriately and reasonably during interview. Patient is engaged, relates well to interviewer, and emotional facial expression is appropriate to situation and changes appropriately with topic. Patient is cooperative, makes comfortable eye contact , and movements are voluntary, deliberate, coordinated, and smooth and even with no inappropriate movements. Patient makes laryngeal sounds effortlessly and shares conversation appropriately; pace of conversation is appropriate, and stream of talking is fluent; articulation is clear and understandable; word choice is effortless and appropriate for education level; completes sentences, occasionally pausing to think; rate and volume are appropriate for interview and setting. Patient reports mood as depressed. Patients affect is flat and constricted, congruent with mood, and appropriate to speech and circumstances. Patient has linear and logical thinking, with no loose associations, tangential thought, thought blocking, concrete thinking, or any other signs of formal thought disorder. Patient denies suicidal/homicidal ideation, and denies hallucinations and delusions. Patient appears to be a fairly reliable historian with fair judgement and fair insight into current condition. Patient has no apparent dysfunction in recent or remote memory noted, and no evidence of gross cognitive dysfunction noted at any point during the interview. - Time Spent With Patient Time Spent With Patient: 15 minutes, met with patient individually. - Pending Discharge Pending Discharge Within 24 Hours: Yes Pending Discharge Within 48 Hours: No Pending Discharge Date: 04/02/18 Pending Discharge Time: 11:00 ICD10 Worksheet Patient Problems: Problems Problem Status Onset Acetaminophen overdose Acute Alcohol overdose Acute Respiratory failure Acute
[2018-04-01] MEDS: FOLIC ACID 1 MG TAB PO SCH (08:42)
[2018-04-01] MEDS: MAGNESIUM OXIDE 400 MG TAB PO SCH (08:42)
[2018-04-01] MEDS: MULTIVITAMINS 1 EACH TAB PO SCH (08:42)
[2018-04-01] MEDS: SERTRALINE HCL 50 MG TAB PO SCH (08:42)
[2018-04-01] MEDS: THIAMINE HCL 100 MG TAB PO SCH (08:42)
[2018-04-01] MEDS: CHOLECALCIFEROL VIT D3 2,000 UNITS TAB/CAP PO SCH (08:42)
[2018-04-01] MEDS ORDERED: DISULFIRAM 250 MG TAB PO ONE ×2 (12:45→13:45)
[2018-04-01 23:49] VITALS: BP 155/102
[2018-04-02] MEDS: THIAMINE HCL 100 MG TAB PO SCH (08:42)
[2018-04-02] MEDS: CHOLECALCIFEROL VIT D3 2,000 UNITS TAB/CAP PO SCH (08:42)
[2018-04-02] MEDS: FOLIC ACID 1 MG TAB PO SCH (08:42)
[2018-04-02] MEDS: MAGNESIUM OXIDE 400 MG TAB PO SCH (08:42)
[2018-04-02] MEDS: MULTIVITAMINS 1 EACH TAB PO SCH (08:42)
[2018-04-02] MEDS: SERTRALINE HCL 50 MG TAB PO SCH (08:43)
[2018-04-02] MEDS ORDERED: DISULFIRAM 250 MG TAB PO SCH (09:00)
--- NOTE | 2018-04-02 11:17 | ASMTBHDC ---
Notes Note: Notes: Pt. stated he has an appointment with Dr. Redmond tomorrow in the early afternoon. Pt. stated his sister will be joining him at this appointment. Pt. stated he is going to continue taking Antabuse, but wants to speak with Dr. Redmond before continuing Zoloft. Pt. stated he will stay at his sister's home for the next 3-4 days. Pt. stated they are going to remove all alcohol containers from pt's home and clean up pt's home. Pt. will then return home but his sister will manage his medications and confirm he is taking them. Pt. stated he completed his safety plan and will fill his medications today. Pt. stated he "want sister as comfortable as possible". Pt. expressed remorse about his attempt and hurting his family. Pt. stated he will be visiting with his mother today. Pt. stated he is open to alternatives to AA meetings. Pt. denied SI, HI, AVH and Paranoia. Pt. presents as alert, calm, talkative, cooperative, good eye contact, and with a mostly friendly demeanor. Staff report pt. sleeping 6.5 hours and being medication compliant. Pt. attended treatment team meeting this morning and stated there will never be another alcohol of Tylenol bottle in his house again. Date Signed: 04/02/2018 11:16 AM Electronically Signed By:Elizabeth Watson
--- NOTE | 2018-04-02 13:06 | BDS ---
REASON FOR ADMISSION: From the ED note dated 03/28/2018, patient presented to the emergency room unresponsive. Patient did not respond to anything, verbal or painful stimuli. EMS was called by the patient's private residence after he at some point called his neighbor for help that he was too intoxicated from drinking alcohol. Also, there is report of concern the patient may have taken a large amount of Tylenol. Patient reported to the MD during psychiatric assessment and history on 03/31/2018, "I was not afraid when I did it. I knew exactly what I was doing. I'm not suicidal now and know how bad it would hurt everyone around me." From the psychiatric assessment and history dated 2017, patient was admitted to the [facility] ED by EMS following an intentional overdose of approximately 70 tabs of Tylenol and acute alcohol intoxication. Patient was placed on an M1 hold by police after his sister called 911. Patient reported he acted impulsively following a fight with his sister. Patient's BAL in the ED was 0.495. Patient was stabilized in the ICU and treated for acetaminophen toxicity. After being in the ICU for several days, patient stated that he regretted his decision to try to kill himself. Patient reported it was done impulsively. Patient reported being upset and angry after an altercation with his sister. Patient reported he would not do that now. Patient was admitted involuntarily on an M1 hold due to being a danger to himself. Patient was admitted for safety, crisis stabilization, and medication evaluation. ADMITTING DIAGNOSES: 1. Major depressive disorder, recurrent episode, severe, with anxious distress. 2. Alcohol use disorder, severe, dependence. ADMISSION PHYSICAL EXAM: Patient was seen for a history and physical on 2017, was also seen on 03/30/2018, for a hospitalist followup. Patient was medically cleared for inpatient psychiatric hospitalization and treatment. For further details, please refer to history and physical dated 03/28/2018, and hospitalist and intensive consult dated 03/30/2018. ADMISSION LABORATORY: 1. CBC from 03/28/2018, within normal limits, except monocytes were elevated at 15.9, basophils were elevated at 1.9, absolute monocytes were elevated at 0.82. 2. Coagulation, including PT, INR and APTT from 03/29/2018, and 03/28/2018, within normal limits. 3. Blood gas from 03/28/2018, within normal limits, except pCO2 was elevated at 275. Total CO2 was low at 18. ABG pH was low at 7.29, ABG HC03 was low at 16, ABG O2 saturation was elevated at 99%, and ABG base excess was low at -9.04. 4. Chemistry from 03/30/2018, within normal limits, except BUN was low at 6. Glucose was elevated at 110. Total bilirubin was elevated at 2. total protein was low at 6.1, albumin was low at 3.3. Lipase was elevated at 331. 5. Hemoglobin A1c was within normal limits from 03/31/2018. 6. Lipid panel from 03/31/2018, within normal limits, except lipase was elevated at 331. 7. Toxicology screen from 03/28/2018, was negative for all substances of abuse tested. Acetaminophen from 03/29/2018, was low, less than 10. Ethyl alcohol from 03/28/2018, was 0.495. MAJOR PROCEDURES/TESTS: None. HOSPITAL COURSE: The most prominent symptoms and behaviors while the patient was here were severe depression and moderate anxiety. Target symptoms during the course of the patient's hospitalization were depression, anxiety, and alcohol use disorder symptoms. Treatment modalities utilized were milieu and group therapy. Sertraline 50 mg p.o. daily was started to target depression and anxiety symptoms, was tolerated with no report of side effects. Antabuse 250 mg p.o. daily was started to target alcohol use, was tolerated with no report of side effects. Patient has improved considerably with no signs of psychiatric symptoms and no psychiatric symptoms expressed at time of discharge. Patient reports he has improved since admission, states to be in stable condition, feels safe to discharge, and he contracts for safety. Patient's response to treatment was good. There were no adverse or unexpected results of treatment. Patient was safe throughout his stay, active in treatment, engaged in groups, and was appropriate with staff and other patients. Patient met with the treatment team prior to discharge to assess readiness to discharge and reviewed discharge plan. The treatment team consensus is the patient is in stable condition, has a safe discharge plan, and is ready to discharge today. CONDITION AT DISCHARGE: Patient is in stable condition and is no longer a danger to self or others, and is not gravely disabled due to mental illness. Patient is no longer in need of inpatient level of care, and can be safely and effectively treated within the community. The patients level of risk at time of discharge is low. MSE: The patient is casually dressed and with good hygiene , and looks stated age. Patient is sitting, posture is upright, and position is relaxed. Patient appears awake, alert, and responds appropriately and reasonably during interview. Patient is engaged, relates well to interviewer, and emotional facial expression is appropriate to situation and changes appropriately with topic. Patient is cooperative, makes comfortable eye contact , and movements are voluntary, deliberate, coordinated, and smooth and even with no inappropriate movements. Patient makes laryngeal sounds effortlessly and shares conversation appropriately; pace of conversation is appropriate, and stream of talking is fluent; articulation is clear and understandable; word choice is effortless and appropriate for education level; completes sentences, occasionally pausing to think; rate and volume are appropriate for interview and setting. Patient reports mood as euthymic. Patients affect is stable with full variable range, congruent with mood, and appropriate to speech and circumstances. Patient has linear and logical thinking, with no loose associations, tangential thought, thought blocking, concrete thinking, or any other signs of formal thought disorder. Patient denies suicidal and homicidal ideation, and denies hallucinations and delusions. Patient appears to be a reliable historian with sound judgement and good insight into current condition. Patient has no apparent dysfunction in recent or remote memory noted , and no evidence of gross cognitive dysfunction noted at any point during the interview. DISCHARGE DIAGNOSES: 1. Major depressive disorder, recurrent episode, severe, with anxious distress. 2. Alcohol use disorder, severe, dependence. CURRENT MEDICATIONS: After reviewing options, risks, and benefits with the patient, the patient agrees to continue: 1. Sertraline 50 mg p.o. daily for anxiety and depression. 2. Antabuse 250 mg p.o. daily for alcohol use disorder. Patient requests prescriptions for these medications at the time of discharge. Prescriptions for 30 days for each medication are provided. The prescriptions are reviewed with the patient at time of discharge to ensure accuracy and patient understanding. DISPOSITION: Patient left hospital independently and voluntarily with his sister and plans to stay with his sister and then return home once he has his house back in order. FOLLOWUP: appointment coordinator reports the appropriate outpatient follow-up services have been established and outpatient appointments have been scheduled. The patient received written instructions with times and dates of outpatient follow-up appointments. The following follow-up recommendations were provided to the patient at discharge: Continue psychotropic medications as prescribed and attend appointments as scheduled. Report any side effects to a psychiatric outpatient provider, a primary care provider, or other health respiratory care instructor. Address any questions or problems concerning the psychotropic medications with a psychiatric outpatient provider, a primary care provider, or other health respiratory care instructor. Contact [facility] or [facility], or go to the nearest emergency room, if you are ever a danger to yourself/others, or unable to care for yourself. As soon as possible, establish a routine medication management treatment with a psychiatric provider, establish routine therapy appointments, and follow-up with a primary care provider. SUBSTANCE ABUSE BRIEF INTERVENTION: Brief intervention regarding the risks of alcohol abuse is provided to patient with goal to reduce the risk of harm that could result from the continued use of alcohol, with the general aim to investigate the problem, raise awareness of problem, develop a solution with the patient, recommend a specific change or activity, and motivate the patient toward change. Assess substance abuse behavior and give supportive advice about harm reduction, recommend a reduction in hazardous/at-risk consumption patterns, and facilitate referrals for additional specialized treatment with respiratory care specialist. Intermediate goal is for the patient to quit, continue Antabuse, and attend outpatient therapy. Intervention focus on intermediate goals to allow for more immediate success in the treatment process to keep the patient motivated. Review following with patient: Alcohol/Binge Drinking risks : short-term: injuries, violence, alcohol poisoning, risky sexual behaviors. Long-term: high blood pressure, stroke, liver disease, digestive problems, cancer, learning and memory problems, depression and anxiety, social problems, and alcohol dependence. OUTPATIENT SUBSTANCE ABUSE TREATMENT: Patient referred to outpatient provider and treatment for continued treatment related to substance abuse. Patient provided with prescription for Antabuse 250 mg po QD. Risks and benefits reviewed with patient. LEGAL COURSE: Patient was admitted on an M1 hold for involuntary inpatient psychiatric hospitalization. The patient became voluntary during his stay and the patient discharged today independently and voluntarily. ATTITUDE AT TIME OF DISCHARGE: The patients attitude was positive at time of discharge, and patient reports looking forward to discharging today. The patient reports he feels safe to discharge, is no longer a danger to himself or others, is in stable condition, and contracts for safety. Patient states he will continue medications as prescribed, and establish medication management treatment with an outpatient provider after discharge. Patient reports he understands the information that has been provided to him, and he understands, accepts, and agrees to psychotropic medications. Patient describes internal protective factors as the coping skills he has learned while hospitalized here, and he plans to continue to practice these coping skills after discharge. FAMILY MEETING: This GEOGRAPHY PROFESSOR met with patient and patient's sister at time of discharge to assess readiness to discharge and review discharge plan. Patient' s sister reports patient has a safe discharge plan and is safe to discharge today. Treatment for alcohol use disorder reviewed including Antabuse risk and benefits, therapy, and ongoing psychiatric treatment on an outpatient basis. LABORATORY/STUDIES: There were no pending labs or studies at time. ADVANCED DIRECTIVES: There were no advance directives on file and the patient was full code during this hospitalization. The following psychotropic medication treatment informed consent and recommendations were provided to the patient at time of discharge. Patient reports he understands, accepts, and agrees to the information that has been provided. PSYCHOTROPIC MEDICATION TREATMENT INFORMED CONSENT and RECOMMENDATIONS: Review nature of condition, diagnosis, and prognosis. Review nature and purpose of psychotropic medication treatment. Review type of psychotropic medications being prescribed. Review risk and benefits of psychotropic medication treatment. Review probable length of time will need to take medications. Review risk and benefits of not undergoing psychotropic medication treatment. Review alternative treatments to psychotropic medications. Review psychotropic medications contraindications, side effects, and importance of reporting any side effects to a psychiatric provider, primary care provider, or other health respiratory care instructor. Review importance of asking a psychiatric provider or primary care provider any questions or problems concerning the psychotropic medications. Review safety plan and the importance to contact [facility] or [facility] , or go to the nearest emergency room, if ever a danger to yourself/others, or unable to care for yourself. Recommend upon discharge to establish routine medication management treatment with a psychiatric provider, establish routine therapy appointments, and follow-up with a primary care provider. Verify patient understands, accepts, and agrees to the information that has been provided. SUICIDE ASSESSMENT FIVE-STEP EVALUATION AND TRIAGE (1) RISK FACTORS: (a) Suicidal behavior: reports history of attempt by overdose (b) Current/past psychiatric disorders: Major Depression, Alcohol Use Disorder (c) Mar symptoms: none expressed or exhibited at time of discharge (d) Family history: none (e) Precipitants/Stressors/Interpersonal: none (f) Change in treatment: discharge from psychiatric hospital (g) Access to firearms: none (2) PROTECTIVE FACTORS: (a) Internal: coping skills learned while hospitalized (b) External: family, friends, and future (3) SUICIDAL INQUIRY: (a) Ideation: none (b) Plan: none (c) Behaviors: none; patient was safe throughout stay with no suicidal or parasuicidal behaviors (d) Intent: none (4) RISK LEVEL: Low: modifiable risk factors, strong protective factors; no suicidal or self-injurious ideation. Intervention: treatment plan to reduce symptoms including medications and therapy, provided emergency/crisis numbers, established follow-up plan, Antabuse treatment, and strong family support. /[id number]/[id number]
== END 2018-04-02 12:00 | disposition home or self-care (01) | DRG 885 ==
LOC: BBEH 21:20
PROVIDERS: ADMIT Psychiatry & Neurology Psychiatry; ATTEND Psychiatry & Neurology Psychiatry
DX: F33.2 Major depressive disorder, recurrent severe without psychotic features (principal); F10.20 Alcohol dependence, uncomplicated; F41.8 Other specified anxiety disorders